=== PATIENT | female | born 1935 | race African-American/Black ===

== ENCOUNTER 2016-04-15 10:09 | Inpatient (IN) | payer BC ==
[2016-04-05 09:45] LABS: BASOPHILS 0.7 %; BASOPHILS ABSOLUTE 0.04 10/3/uL (0.0-0.16); EOSINOPHILS ABSOLUTE 0.18 10/3/uL (0.0-0.53); HEMOGLOBIN 11.2 g/dL (12.0-16.0); IMMATURE GRANULOCYTES 0.2 %; IMMATURE GRANULOCYTES ABSOLUTE 0.01 10/3/uL (0.0-0.11); LYMPHOCYTES 35.4 %; LYMPHOCYTES ABSOLUTE 2.15 10/3/uL (0.67-4.30); MEAN CORPUS HGB CONC 32.9 g/dL (32.0-36.0); MEAN CORPUSCULAR HEMOGLOB 24.8 pg (26.0-34.0); MEAN CORPUSCULAR VOLUME 75.4 fL (80-100); MONOCYTES 6.4 %; MONOCYTES ABSOLUTE 0.39 10/3/uL (0.21-1.20); NEUTROPHILS 54.3 %; PLATELET COUNT 240 10/3/uL (150-400); RBC DISTRIBUTION WIDTH 14.4 % (12.0-16.0); RED CELL COUNT 4.51 10/6/uL (4.0-5.6); WHITE BLOOD CELLS 6.1 10/3/uL (4.5-10.5)
[2016-04-05 09:50] LABS: INTERNATIONAL NORMAL RATI 1.2 UNITS (-); PROTIME (NOT ORD) 14.7 SEC (12.0-14.5)
[2016-04-05 09:51] LABS: PARTIAL THROMBO TIME 47.8 SEC (22.5-37.2)
[2016-04-05 09:54] LABS: MANUAL DIFF NO %
[2016-04-05 10:01] LABS: ASCORBIC ACID (UR NOT ORDER) NEG (NEG); BILIRUBIN, URINE NEGATIVE (NEG); KETONE, URINE NEGATIVE (NEG); LEUKOCYTE ESTERASE(NOT OR TRACE (NEG); WBC (NOT ORDERED) (RFLEX) 1 (0-5)
[2016-04-05 10:05] LABS: A/G RATIO 1.1 (0.7-1.9); ALBUMIN 3.9 G/DL (3.5-5.0); ALKALINE PHOSPHATASE 136 U/L (45-117); BUN (BLOOD UREA NITROGEN) 14 MG/DL (6-23); CALCIUM, SERUM 8.6 MG/DL (8.5-10.4); CHLORIDE, SERUM 104 MMOL/L (96-112); CO2 (CARBON DIOXIDE) 28 MMOL/L (24-34); CREATININE 0.67 MG/DL (0.55-1.02); GFR AFRICAN AMERICAN 96 ML/MIN (>=60); GFR NON AFRICAN AMERICAN 83 ML/MIN (>=60); GLOBULIN 3.6 G/DL (2.5-4.1); GLUCOSE, SERUM 87 MG/DL (60-99); POTASSIUM, SERUM 4.2 MMOL/L (3.5-5.3); SGOT(AST) 16 U/L (5-40); SGPT(ALT) 18 U/L (5-65); SODIUM, SERUM 142 MMOL/L (135-148); TOTAL BILIRUBIN 0.4 MG/DL (0-1.2); TOTAL PROTEIN 7.5 G/DL (6.0-8.5)
--- NOTE | ~2016-04-15 | HP ---
History And Physical [place] [id number] [facility] [place]. [address] NAME: JOSELITO GREGG : 35 STATUS : ADM IN [facility]#: [id number] AGE: 80 ADM/REG DATE : 04/15/16 MR#: [id number] REPORT SERV DATE: 04/15/16 DICTATED BY: TAYO BACA III DATE: 04/15/16 REPORT STATUS : Draft TRANSCRIBED BY: MODAlexander DATE: 04/15/16 DATE OF ADMISSION: 04/15/2016 CHIEF COMPLAINT: Right knee pain. HISTORY: The patient is an 80-year-old black female, who complains of pain in the right knee following right total knee arthroplasty that was performed on 10/28/2012. She initially did well, but started having some pain in her knee in 2014. X-ray suggests some radiolucency around the tibial tray and a bone scan was ordered on 12/08/2014, which did not suggest loosening of the tibial component. She continued to have symptoms throughout the year, particularly 2015 when she presented to the emergency room at [place], was told she had a loose tibial component. She was seen back in the office on 01/01/2016, where x-rays revealed loose tibial component. It was recommended that she undergo revision of her tibial tray and she is now admitted for this procedure. Risks, benefits, and expected outcomes have been explained, but not limited to blood clots, infection, neurovascular injuries, patella maltracking problems, and component failures, as well as aseptic loosening of the components as well. PAST MEDICAL HISTORY: Negative for high blood pressure; diabetes; liver, lung, or kidney problems. PREVIOUS SURGERIES: Include a right shoulder rotator cuff repair done on 05/17/2010, a hernia repair, a right total knee arthroplasty on 10/28/2012. HOME MEDICATIONS: Include Norvasc and naproxen. ALLERGIES: HYDROCODONE. REVIEW OF SYSTEMS: Noncontributory. PHYSICAL EXAMINATION: GENERAL: She is alert and oriented x3. VITAL SIGNS: Stable. HEENT: Normocephalic, atraumatic. Pupils equal, round, and reactive to light and accommodation. Extraocular muscles are intact. NECK: Supple. CHEST: Clear. HEART: Regular rate and rhythm without murmur. ABDOMEN: Benign, soft, nontender. Positive bowel sounds. ORTHOPEDIC: Reveals 2+ varus and valgus stress. Mild effusion. Range of motion 0 to 120. Good patellar tracking. No erythema. No warmth. No signs of infection. X-RAYS: Reveal radiolucency around the tibial component and aseptic loosening of the tibial component. History And Physical [address] [address] NAME: JOSELITO GREGG : 35 STATUS : ADM IN [facility]#: [id number] AGE: 80 ADM/REG DATE : 04/15/16 MR#: [id number] REPORT SERV DATE: 04/15/16 DICTATED BY: TAYO BACA III DATE: 04/15/16 REPORT STATUS : Draft TRANSCRIBED BY: DAYNE DATE: 04/15/16 PLAN: Admission for revision of the tibial component. TB/DAYNE Tayo Baca III, M.D. / [id number] CC: Tayo Baca III, M.D.
--- NOTE | ~2016-04-15 | OP ---
Record Of Operation [facility] [address] [place]. 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 SURGICAL PROCEDURE PERFORMED: Revision of right total knee arthroplasty tibial component only with a size 45 mm porous-coated sleeve with a size 16 mm stem with a size 3 tibial tray and a +15 polyethylene insert rotating platform design. SURGEON: Tayo Baca M.D. METALLURGICAL ENGINEER: Akanksha Dobbins. ANESTHESIA: General antibiotics Ancef 2 g. COMPLICATIONS: None. TOURNIQUET TIME: 54 minutes. CRYSTALLOID: 800 mL. ESTIMATED BLOOD LOSS: 100 mL. DRAINS: ConstaVac x1. COMPLICATIONS: None. TRANEXAMIC ACID: 1 g. PROCEDURE IN DETAIL: The patient was brought to the operating room, placed on the table in supine position and general anesthesia was induced. Ancef 2 g was administered intravenously in the operating room. Pneumatic tourniquet was applied to right upper thigh. An adductor nerve block was provided per Anesthesia Department in the preoperative holding area. The right lower extremity was prepped and draped in the usual sterile fashion. It was exsanguinated with a 6-inch Esmarch. Tourniquet was inflated to 350 mmHg. Assuring good anesthesia, a standard midline incision was made directly over the right knee through the previously existing scar tissue. Medial arthrotomy was carried out and the patella was everted and the knee was flexed to 90 degrees. Abundant hypertrophic reactive synovium was debrided in the suprapatellar pouch and medial and lateral gutters. The polyethylene insert was removed with a small narrow osteotome and a mallet, which was easily disengaged from the tibial tray. The tibial tray was loose. It was easily removed with a narrow osteotome. A Hohmann retractor was placed posterior to the tibia that subluxed the tibia anterior in Record Of Operation [facility] [address] [place]. [address] NAME: JOSELITO GREGG : 35 STATUS : ADM IN PAT#: [id number] AGE: 80 ADM/REG DATE : 04/15/16 MR#: [id number] REPORT SERV DATE: 04/15/16 DICTATED BY: TAYO BACA III DATE: 04/15/16 REPORT STATUS : Draft TRANSCRIBED BY: DAYNE DATE: 04/15/16 order to disengage the tibial component. Bone cement was then removed with a small osteotome along with the tibial plateau and along the canal of the tibia. Having accomplished this, the tibia was then drilled to open the canal. Serial reamers were utilized starting with a 10 going up to a size 16. A cutting broach was next selected in incremental size stopping at a size 45 mm. A size 3 tibial tray was selected and attached to the stem and trial sleeve. Trial reduction was carried out with a size 15 polyethylene insert rotating platform design. Excellent extension was noted and well balanced medial lateral. At this point, the trial components were removed. The real components were opened up and put together on the back table. Two packs of methylmethacrylate were vacuum mixed. A small ring of cement was placed at the junction of the sleeve in the stem. The cement was pressurized into the proximal tibial plateau, but not in the canal, and the tibia was then impacted with excellent fixation. The real size 15 polyethylene insert rotating platform design was placed and the knee was placed in extension for 12 to 13 minutes while the cement hardened. Tourniquet was released after 54 minutes. Bleeding was controlled with Bovie electrocautery. Thorough irrigation was carried out throughout the procedure pulse lavage system. One medium sized ConstaVac drain was placed in the wound. Medial arthrotomy was closed with #2 Ethibond suture and #1 Vicryl suture in a 90 degree flexed position. Subcutaneous tissue was closed with 2-0 Vicryl, and the skin was closed using 4-0 Monocryl. Benzoin and Steri-Strips were applied, followed by Aquacel dressing. The patient tolerated the procedure well and brought to the recovery room in satisfactory condition. DEIRDRE/DAYNE Tayo Baca III, M.D. / [id number] CC: Tayo Baca III, M.D.
[~2016-04-15 10:09] MED LIST: COUMADIN4 MG PO; K250 PO; NORV5 PO; PCET PO
[2016-04-16 05:53] LABS: HEMOGLOBIN 9.1 g/dL (12.0-16.0)
[2016-04-17 05:22] LABS: HEMATOCRIT 25.8 % (36.0-48.0); HEMOGLOBIN 8.5 g/dL (12.0-16.0)
[2016-08-01] MEDS ORDERED: ULTRAM50 PO (12:29)
[2016-08-01] MEDS ORDERED: ZOVI800 PO (12:29)
== END 2016-04-17 13:35 | DRG 468 ==
LOC: SDC/OF 10:09 → PACU 15:56 → 1SO 19:10
PROVIDERS: Orthopaedic Surgery
PROC: 0SRV0J9 Replacement of Right Knee Joint, Tibial Surface with Synthetic Substitute, Cemented, Open Approach (ICD-10-PCS; 2016-04-15)
PROC: 0SPC09Z Removal of Liner from Right Knee Joint, Open Approach (ICD-10-PCS; 2016-04-15)
PROC: 0SUV09Z Supplement Right Knee Joint, Tibial Surface with Liner, Open Approach (ICD-10-PCS; 2016-04-15)
PROC: 0SPV0JZ Removal of Synthetic Substitute from Right Knee Joint, Tibial Surface, Open Approach (ICD-10-PCS; principal; 2016-04-15 12:30)
DX: T84.032A Mechanical loosening of internal right knee prosthetic joint, initial encounter (principal); Z88.5 Allergy status to narcotic agent; Y83.8 Other surgical procedures as the cause of abnormal reaction of the patient, or of later complication, without mention of misadventure at the time of the procedure; Z79.899 Other long term (current) drug therapy
CPT/HCPCS: 36415; 71020; 80053; 81001; 82550; 85014; 85018; 85025; 85610; 85730; 86850; 86900; 86901; 87641; 88304; 88311; 93005; 97110-GP; 97116-GP; 97161-GP; 97165-GO; A9270-GY; C1776; J0690; J1885; J2250; J2270; J2274; J2405; J2550; J2795; J3010

== ENCOUNTER 2016-07-30 22:36 | Emergency (ER) | payer BC ==
[2016-08-01] MEDS ORDERED: ZOVI800 PO (12:29)
[2016-08-01] MEDS ORDERED: ULTRAM50 PO (12:29)
== END 2016-07-30 23:27 | disposition home or self-care (01) ==
LOC: ER 22:36
DX: B02.9 Zoster without complications (principal); I10 Essential (primary) hypertension; Z88.2 Allergy status to sulfonamides; Z88.5 Allergy status to narcotic agent; Z88.1 Allergy status to other antibiotic agents; Z79.899 Other long term (current) drug therapy
CPT/HCPCS: 93005; 99284

== ENCOUNTER 2016-08-06 07:17 | Day surgery (SDC) | payer BC ==
[2016-07-29 09:35] LABS: BASOPHILS 0.3 %; BASOPHILS ABSOLUTE 0.02 10/3/uL (0.0-0.16); EOSINOPHILS 2.9 %; EOSINOPHILS ABSOLUTE 0.18 10/3/uL (0.0-0.53); LYMPHOCYTES 34.8 %; LYMPHOCYTES ABSOLUTE 2.18 10/3/uL (0.67-4.30); MEAN CORPUS HGB CONC 32.8 g/dL (32.0-36.0); MEAN CORPUSCULAR HEMOGLOB 24.3 pg (26.0-34.0); MEAN CORPUSCULAR VOLUME 74.2 fL (80-100); MEAN PLATELET VOLUME 10.6 fL (9.2-13.0); MONOCYTES 6.7 %; MONOCYTES ABSOLUTE 0.42 10/3/uL (0.21-1.20); NEUTROPHILS 55.3 %; NEUTROPHILS ABSOLUTE 3.46 10/3/uL (2.02-8.40); PLATELET COUNT 268 10/3/uL (150-400); RBC DISTRIBUTION WIDTH 14.6 % (12.0-16.0); RED CELL COUNT 4.69 10/6/uL (4.0-5.6); WHITE BLOOD CELLS 6.3 10/3/uL (4.5-10.5)
[2016-07-29 09:37] LABS: HEMATOCRIT 34.8 % (36.0-48.0); HEMOGLOBIN 11.4 g/dL (12.0-16.0); MANUAL DIFF NO %
[2016-07-29 09:45] LABS: BUN (BLOOD UREA NITROGEN) 14 MG/DL (6-23); CALCIUM, SERUM 8.6 MG/DL (8.5-10.4); CHLORIDE, SERUM 108 MMOL/L (96-112); CO2 (CARBON DIOXIDE) 28 MMOL/L (24-34); CREATININE 0.84 MG/DL (0.55-1.02); GFR AFRICAN AMERICAN 76 ML/MIN (>=60); GFR NON AFRICAN AMERICAN 65 ML/MIN (>=60); GLUCOSE, SERUM 78 MG/DL (60-99); POTASSIUM, SERUM 3.7 MMOL/L (3.5-5.3); SODIUM, SERUM 141 MMOL/L (135-148)
[2016-07-29 09:49] LABS: INTERNATIONAL NORMAL RATI 1.2 UNITS (-); PROTIME (NOT ORD) 15.4 SEC (12.0-14.5)
[2016-07-29 09:52] LABS: PARTIAL THROMBO TIME 44.4 SEC (22.5-37.2)
[~2016-08-06 07:17] MED LIST changes: +ULTRAM50 PO; +ZOVI800 PO
== END 2016-08-06 23:59 | disposition home or self-care (01) ==
LOC: SDC 07:17
PROVIDERS: Otolaryngology
DX: Z53.8 Procedure and treatment not carried out for other reasons (principal)
CPT/HCPCS: 80048; 85025; 85610; 85730; 93005; J0690